=== PATIENT | male | born 1990 | race Caucasian/White ===

== ENCOUNTER 2018-11-04 17:01 | Observation (INO) | payer MEDICAID, SELFPAY ==
[2018-11-04 17:25] VITALS: BMI 29.8
--- NOTE | 2018-11-04 17:44 | PCM.HP.STD ---
Problem List (1) Opiate withdrawal Status: Acute (2) Heroin use Status: Chronic (3) History of intravenous drug abuse Status: Chronic (4) Tobacco use Status: Chronic (5) Obesity Status: Chronic Qualifiers: Obesity type: due to excess calories (6) Anxiety Status: Chronic History of Present Illness Date of Admission: 11/04/18 Chief Complaint: Acute Opiate Withdrawal The patient is a 28 y/o M w/ PMHx: Anxiety, Obesity, Tobacco use, Prior Hx Nephrolithiasis, History of Frequent Dental Infections, Prior Hx Heroin IV usage transitioning to Snorting (~2.5 prior) w/ usual usage 1 gm daily who presents to the [facility] at [facility] on 11/04/18 w/ noted opiate withdrawal onset starting 11/04/18 following last dose heroin 1/2 gm 11/03/18 7:30 pm with abdominal pain/cramping, generalized body aches and pains, rhinorrhea, fatigue, restless leg, sweating, yawning. Patient interested in attaining clean status. He has never been in an acute withdrawal program prior. He notes that he had been clean for nearing 2 years and joined a [employer] group and unfortunately several members were using heroin and he restarted. Past Medical History Past Medical History (Chronic Problems): Chronic Problems Heroin use (Chronic) History of intravenous drug abuse (Chronic) Tobacco use (Chronic) Obesity (Chronic) Anxiety (Chronic) Allergies Penicillins [PCN] Allergy (Unknown, Verified 11/04/18 17:35) Other Surgical History: - - Was them teeth extraction. Psychiatric History: Anxiety Lives: Alone Smoking Status: Current every day smoker - 1 pack/day cigarette tobacco usage. Tobacco Use: Cigarettes Alcohol: None Drugs: Heroin - Previously intravenously but for the past 2.5 years he is transition to snorting, 1 g/day usual usage. - *Family History Maternal History Items: - - Patient notes that his mother is healthy and denies any history of cancer, heart disease or diabetes. Paternal History Items: - - Patient notes he has a paternal family history of hypertension. Review of Systems Constitutional: Reports: Anorexia, Malaise, Weakness, Fatigue. Denies: Chills, Fever, Weight Change HEENT: Reports: Nasal Congestion, Sinus Congestion, Sinus Drainage. Denies: Head Aches Cardiovascular: Denies: Chest Pain, Palpitations Respiratory: Denies: Cough, Shortness of breath at rest, Sputum production Gastrointestinal: Reports: Abdominal Pain, Nausea. Denies: Vomiting Genitourinary: Denies: Dysuria Musculoskeletal: Reports: Joint Pain, Muscle pain. Denies: Joint Tenderness Skin: Denies: Rash, Wounds Neurological: Denies: Numbness, Tingling, Focal weakness Psychiatric: Reports: Anxiety. Denies: Depression, Homicidal Ideations, Suicidal Ideations Hematologic/ Lymphatic: Denies: Easy Bruising, Easy Bleeding VTE Information - Inpt Only VTE Present on Admission: No VTE Mechan Device Prophylaxis: None VTE Pharm Prophylaxis ordered?: No Reason prophylaxis not ordered:: Treatment Not Indicated Patient Problems: Active and Suspected Problems Opiate withdrawal (Acute) Subjective: Seated upright in the bed, fatigued appearing, at the same time anxious and restless, moving the bed frequently. Objective: Physical Examination: General: awake, alert, oriented x 3 and cooperative, seated upright in bed in no acute distress but does appear restless, moving the bed frequently. Skin: normal color, turgor, no icterus, cyanosis. HEENT: AT/NC, EOMI, PERRLA, moderately dry MM, no carotid bruits or JVD noted. Lungs: Diminished breath sounds at bases, occasional end expiratory wheeze, improved following coughing, no rales, ronchi. Heart: Regular rate and rhythm; no gallop, rub audible. Abdomen: soft, mild generalized discomfort with palpation, obese, ND, mildly hyperactive BS, no HSM. Extremities: no cyanosis, clubbing, or edema. Neurological: patient awake, alert, oriented x 3; cognitive function intact; pupils equally reactive to light and accomodation; cranial nerves II-XII grossly normal, moving all 4 extremities, no focal deficits, strength moderately globally decreased secondary to acute presentation. Psychiatric: affect appears mildly agitated, restless, no acute evidence of depressive or anxiety feelings. - Physical Exam Weight: 202 lb Body Mass Index (BMI) 29.8 Assessment/Plan All Active Problems Opiate withdrawal (Acute) The patient is a 28 y/o M w/ PMHx: Anxiety, Obesity, Tobacco use, Prior Hx Nephrolithiasis, History of Frequent Dental Infections, Prior Hx Heroin IV usage transitioning to Snorting (~2.5 prior) w/ usual usage 1 gm daily who presents to the [facility] at [facility] on 11/04/18 w/ noted opiate withdrawal onset. (1) Acute Opiate Withdrawal: Will admit to [facility], obtain routine labs including CBC, CMP, urine for drug screen and will initiate and continue on [facility] service protocol with tapering course of Subutex, as needed Seroquel, Librium, Sinemet, Catapres, Bentyl, Vistaril, IV fluids, IV antiemetics, Tylenol as needed for pain. Once patient clinically improved and completion of taper nearing will plan [facility] assistance for transition to next level of rehabilitation care. (2) IVDA Hx: Patient denies any history of hepatitis or HIV. He notes having been off IVDA usage x ~ 2.5 years. He is amenable to testing, pending HIV and hepatitis panel. Patient currently not candidate for hep C treatment currently as needs to be clean, sober x 6 months, documented attendance NA or AA meetings, counseling and ongoing negative drug screens. (3) Tobacco Abuse: Encouraged cessation, inpatient consultation per RT, NR if desired. (4) Anxiety: Not on regimen, discussed this may be component of usage, encouraged follow-up per [facility] set-up with counseling. (5) Obesity: Weight loss and lifestyle changes encouraged. (6) DVT prophylaxis: Low risk, ambulation. Code Visit Inpatient E&M: 53184 Init Hosp L3
[2018-11-04 17:55] VITALS: BP 122/74; PULSE 65; RESP 18; TEMP 37.2
[2018-11-04] MEDS: Methocarbamol 750 MG Tablet PO (18:04)
[2018-11-04] MEDS: Dicyclomine 10 MG Capsule 20 MG PO (18:04)
[2018-11-04] MEDS: chlordiazePOXIDE 25 MG Capsule PO (18:05)
[2018-11-04] MEDS: Buprenorphine HCl 2 MG TAB.SUBL SL (18:05)
[2018-11-04 18:12] LABS: ALB/GLOB Ratio 1.1 RATIO (0.9-2.4); AST(SGOT) 31 U/L (15-37); Alanine Aminotransfer ALT/SGPT 52 U/L (16-61); Albumin, Serum 3.6 g/dL (3.2-5.0); Alkaline Phosphatase 99 U/L (45-117); Anion Gap 4 (5-15); BUN 7 mg/dL (7-18); BUN/Creat Ratio 11.6 RATIO (10-20); Calcium,Total 8.4 mg/dL (8.5-10.1); Chloride 109 mmol/L (98-107); EST Glomerular Filtration Rate 171 mL/min (>60); Est Glom Filt Rate - Afr Amer 207 mL/min (>60); Estimated Creatinine Clearance 186.57 ml/min; Globulin 3.2 g/dL (2.2-4.2); Glucose 81 mg/dL (74-106); Protein, Total 6.8 g/dL (6.4-8.2); Sodium Level 141 mmol/L (136-145)
[2018-11-04 18:16] LABS: Bacteria 0 SEEN /hpf (None Seen); Mucous, Urine 0 SEEN /hpf (<or=2+); Red Blood Cells-Urine 0 SEEN /hpf (0-5)
[2018-11-04 18:16] LABS: Absolute Lymphocyte Count 2.19 X10^3/ul (0.83-4.51); Absolute Neutrophil Count 6.3 X10^3/uL (2.0-7.7); Basophil# 0.05 X10^3/uL; Basophil% 0.5 % (0-1); Eosinophils% 1.1 % (0-5); Hematocrit 45.5 % (40-54); Hemoglobin 16.3 g/dl (13.0-16.5); Lymphocyte # 2.19 X10^3/ul (4.0); Lymphocyte % 24.1 % (19-41); Mean Corp Hgb Conc 35.8 g/gl (32-36); Mean Corpuscular Hgb 31.5 pg (27.0-32.0); Mean Platelet Vol. 8.9 fl (6.2-12.0); Monocyte% 5.5 % (0-10); Neutrophil # 6.25 X10^3/uL (2.7-7.7); Neutrophil % 68.7 % (47-70); Platelet Count 277 K/mm3 (150-450); RBC Distribution Width CV 12.2 % (11.6-14.6); RBC Distribution Width SD 38.6 fl (35.1-43.9); Red Blood Count 5.17 M/mm3 (4.6-6.2); White Blood Count 9.1 K/mm3 (4.4-11.0)
--- NOTE | 2018-11-04 18:18 | HP.PCM_ITS ---
Problem List (1) Opiate withdrawal Status: Acute (2) Heroin use Status: Chronic (3) History of intravenous drug abuse Status: Chronic (4) Tobacco use Status: Chronic (5) Obesity Status: Chronic Qualifiers: Obesity type: due to excess calories (6) Anxiety Status: Chronic History of Present Illness Date of Admission: 11/04/18 Chief Complaint: Acute Opiate Withdrawal The patient is a 28 y/o M w/ PMHx: Anxiety, Obesity, Tobacco use, Prior Hx Nephrolithiasis, History of Frequent Dental Infections, Prior Hx Heroin IV usage transitioning to Snorting (~2.5 prior) w/ usual usage 1 gm daily who presents to the [facility] at [facility] on 11/04/18 w/ noted opiate withdrawal onset starting 11/04/18 following last dose heroin 1/2 gm 11/03/18 7:30 pm with abdominal pain/cramping, generalized body aches and pains, rhinorrhea, fatigue, restless leg, sweating, yawning. Patient interested in attaining clean status. He has never been in an acute withdrawal program prior. He notes that he had been clean for nearing 2 years and joined a [employer] group and unfortunately several members were using heroin and he restarted. Past Medical History Past Medical History (Chronic Problems): Chronic Problems Heroin use (Chronic) History of intravenous drug abuse (Chronic) Tobacco use (Chronic) Obesity (Chronic) Anxiety (Chronic) Allergies Penicillins [PCN] Allergy (Unknown, Verified 11/04/18 17:35) Other Surgical History: - - Was them teeth extraction. Psychiatric History: Anxiety Lives: Alone Smoking Status: Current every day smoker - 1 pack/day cigarette tobacco usage. Tobacco Use: Cigarettes Alcohol: None Drugs: Heroin - Previously intravenously but for the past 2.5 years he is transition to snorting, 1 g/day usual usage. - *Family History Maternal History Items: - - Patient notes that his mother is healthy and denies any history of cancer, heart disease or diabetes. Paternal History Items: - - Patient notes he has a paternal family history of hypertension. Review of Systems Constitutional: Reports: Anorexia, Malaise, Weakness, Fatigue. Denies: Chills, Fever, Weight Change HEENT: Reports: Nasal Congestion, Sinus Congestion, Sinus Drainage. Denies: Head Aches Cardiovascular: Denies: Chest Pain, Palpitations Respiratory: Denies: Cough, Shortness of breath at rest, Sputum production Gastrointestinal: Reports: Abdominal Pain, Nausea. Denies: Vomiting Genitourinary: Denies: Dysuria Musculoskeletal: Reports: Joint Pain, Muscle pain. Denies: Joint Tenderness Skin: Denies: Rash, Wounds Neurological: Denies: Numbness, Tingling, Focal weakness Psychiatric: Reports: Anxiety. Denies: Depression, Homicidal Ideations, Suicidal Ideations Hematologic/ Lymphatic: Denies: Easy Bruising, Easy Bleeding VTE Information - Inpt Only VTE Present on Admission: No VTE Mechan Device Prophylaxis: None VTE Pharm Prophylaxis ordered?: No Reason prophylaxis not ordered:: Treatment Not Indicated Patient Problems: Active and Suspected Problems Opiate withdrawal (Acute) Subjective: Seated upright in the bed, fatigued appearing, at the same time anxious and restless, moving the bed frequently. Objective: Physical Examination: General: awake, alert, oriented x 3 and cooperative, seated upright in bed in no acute distress but does appear restless, moving the bed frequently. Skin: normal color, turgor, no icterus, cyanosis. HEENT: AT/NC, EOMI, PERRLA, moderately dry MM, no carotid bruits or JVD noted. Lungs: Diminished breath sounds at bases, occasional end expiratory wheeze, improved following coughing, no rales, ronchi. Heart: Regular rate and rhythm; no gallop, rub audible. Abdomen: soft, mild generalized discomfort with palpation, obese, ND, mildly hyperactive BS, no HSM. Extremities: no cyanosis, clubbing, or edema. Neurological: patient awake, alert, oriented x 3; cognitive function intact; pupils equally reactive to light and accomodation; cranial nerves II-XII grossly normal, moving all 4 extremities, no focal deficits, strength moderately globally decreased secondary to acute presentation. Psychiatric: affect appears mildly agitated, restless, no acute evidence of depressive or anxiety feelings. - Physical Exam Weight: 202 lb Body Mass Index (BMI) 29.8 Assessment/Plan All Active Problems Opiate withdrawal (Acute) The patient is a 28 y/o M w/ PMHx: Anxiety, Obesity, Tobacco use, Prior Hx Nephrolithiasis, History of Frequent Dental Infections, Prior Hx Heroin IV usage transitioning to Snorting (~2.5 prior) w/ usual usage 1 gm daily who presents to the [facility] at [facility] on 11/04/18 w/ noted opiate withdrawal onset. (1) Acute Opiate Withdrawal: Will admit to MS, obtain routine labs including CBC, CMP, urine for drug screen and will initiate and continue on [facility] service protocol with tapering course of Subutex, as needed Seroquel, Librium, Sinemet, Catapres, Bentyl, Vistaril, IV fluids, IV antiemetics, Tylenol as needed for pain. Once patient clinically improved and completion of taper nearing will plan [facility] assistance for transition to next level of reha bilitation care. (2) IVDA Hx: Patient denies any history of hepatitis or HIV. He notes having been off IVDA usage x ~ 2.5 years. He is amenable to testing, pending HIV and hepatitis panel. Patient currently not candidate for hep C treatment currently as needs to be clean, sober x 6 months, documented attendance NA or AA meetings, counseling and ongoing negative drug screens. (3) Tobacco Abuse: Encouraged cessation, inpatient consultation per RT, NR if desired. (4) Anxiety: Not on regimen, discussed this may be component of usage, encouraged follow-up per [facility] set-up with counseling. (5) Obesity: Weight loss and lifestyle changes encouraged. (6) DVT prophylaxis: Low risk, ambulation. Code Visit Inpatient E&M: 88277 Init Hosp L3
[2018-11-04 18:20] LABS: POSITIVE COUNT NO; POSITIVE DIFFERENTIAL NO; POSITIVE MORPHOLOGY NO
[2018-11-04 18:28] LABS: Color, Urine Yellow (Yellow); Glucose, Dipstick Normal (Normal); Ketone-Dipstick Negative (Negative); Leukocyte Esterase-Dipstick 100 /ul (Negative); Nitrite-Dipstick Negative (Negative); Occult Blood-Urine Negative /ul (Negative); Protein-Dipstick Negative (Negative); Specific Gravity, Urine 1.015 (1.002-1.030); Urine Bilirubin Dipstick Negative (Negative); Urine Clarity Sl. Cloudy (Clear); Urine Urobilinogen 1 mg/dl (Normal)
[2018-11-04 18:36] LABS: Squamous Epithelial Cells - UA 0-5 SEEN /hpf (0-5); White Blood Cells 10-25 SEEN /hpf (0-5)
[2018-11-04 19:29] LABS: HIV - WCH Non-Reactive (Nonreactive)
[2018-11-04] MEDS: hydrOXYzine PAM 25 MG Capsule 50 MG PO (20:29)
[2018-11-04 21:47] VITALS: BP 140/85; PULSE 66; RESP 16; TEMP 36.7
[2018-11-04] MEDS: cloNIDine HCl 0.1 MG Tablet PO (21:53)
[2018-11-04] MEDS: Pramipexole Di-HCl 0.25 MG Tablet PO (21:53)
[2018-11-05] VITALS (7 sets, daily range): BP systolic 98–130; BP diastolic 52–78; PULSE 61–85; RESP 14–18; TEMP 36.4–37
[2018-11-05] MEDS: chlordiazePOXIDE 25 MG Capsule PO (02:10)
[2018-11-05] MEDS: Buprenorphine HCl 2 MG TAB.SUBL SL ×3 (02:10→17:47)
[2018-11-05] MEDS: Methocarbamol 750 MG Tablet PO ×3 (02:10→22:09)
--- NOTE | 2018-11-05 07:34 | PCM.PN.HOSP ---
Patient Problems: Active and Suspected Problems Opiate withdrawal (Acute) Subjective: Patient is a 28-year-old M with history of heroin dependence admitted with acute opioid withdrawal. 11/05/2018: Patient seen complains of low back pain restless legs as well as abdominal cramps. Objective: GENERAL: cooperative HEENT: Atraumatic; EYES; Anicteric, Normal Conjunctiva NECK; supple, normal thyroid, RESPIRATORY: Diminished to auscultation bilaterally, CARDIOVASCULAR: Regular S1 S2, GI: soft, non-tender, normoactive bowel sounds, : No Renal angle tenderness; EXTREMITIES: No edema, no clubbing, no cyanosis. MUSCULOSKELETAL: No Joint Tenderness; NEURO: Awake; no lateralizing signs. SKIN: No Rash PSYCH; Normal affect Vitals/I&O's: Vital Signs Temp Pulse Resp BP 97.6 F L 61 14 98/52 L 11/05/18 05:32 11/05/18 05:32 11/05/18 05:32 11/05/18 05:32 Oxygen Delivery Method Room Air Weight: 91.626 kg Body Mass Index (BMI) 29.8 Intake and Output for Last 24 Hours 11/03/18 11/04/18 11/05/18 23:59 23:59 23:59 Intake Total 200 / 200 1500 / 1500 Balance 200 / 200 1500 / 1500 Laboratory Results 11/04/18 17:30: Urine Color Yellow, Urine Clarity Sl. Cloudy, Urine pH 6.0, Ur Specific [place] 1.015, Urine Protein Negative, Urine Glucose (UA) Normal, Urine Ketones Negative, Urine Occult Blood Negative, Urine Nitrite Negative, Urine Bilirubin Negative, Urine Urobilinogen 1 H, Ur Leukocyte Esterase 100 H, Urine RBC 0 SEEN, Urine WBC 10-25 SEEN, Ur Squamous Epith Cells 0-5 SEEN, Urine Bacteria 0 SEEN, Urine Mucus 0 SEEN 11/04/18 17:45: WBC 9.1, RBC 5.17, Hgb 16.3, Hct 45.5, MCV 88.0, MCH 31.5, MCHC 35.8, RDW 12.2, RDW Differential 38.6, Plt Count 277, MPV 8.9, Immature Gran % (Auto) 0.100, Neut % (Auto) 68.7, Lymph % (Auto) 24.1, [place] % (Auto) 5.5, Eos % (Auto) 1.1, Baso % (Auto) 0.5, Absolute Neuts (auto) 6.3, Absolute Lymphs (auto) 2.19, Total Counted Not Reportable 11/04/18 17:45: Sodium 141, Potassium 4.0, Chloride 109 H, Carbon Dioxide 28.0, Anion Gap 4 L, BUN 7, Creatinine 0.60 L, Estim Creat Clear Calc 186.57, Est GFR (MDRD) Af Amer 207, Est GFR (MDRD) Non-Af 171, BUN/Creatinine Ratio 11.6, Glucose 81, Calcium 8.4 L, Total Bilirubin 1.10 H, AST 31, ALT 52, Alkaline Phosphatase 99, Total Protein 6.8, Albumin 3.6, Globulin 3.2, Albumin/Globulin Ratio 1.1 11/04/18 17:45: Ethyl Alcohol 10.0 11/04/18 17:45: Hepatitis A IgM Ab Pending, Hepatitis A Ab Total Pending, Hep Bs Antigen Pending, Hep B Core Total Ab Pending, Hep B Core IgM Ab Pending 11/04/18 17:45: HIV 1&2 Antibody Non-Reactive Current Medications Acetaminophen (Tylenol) 500 mg PO Q4H PRN PRN PRN Reason: Temp > 100.4 F Al Hydroxide/Mg Hydroxide (Mylanta Ii) 30 ml PO Q6H PRN PRN PRN Reason: dyspesia Bisacodyl (Dulcolax) 10 mg RECTAL DAILY PRN PRN Reason: Constipation Buprenorphine HCl (Buprenorphine Hcl) 4 mg SL Q8H SHREYA; Taper Stop: 11/07/18 21:59 Last Admin: 11/05/18 02:10 Dose: 4 mg Chlordiazepoxide (Librium) 25 mg PO Q6H PRN PRN PRN Reason: Moderate-Severe Anxiety Last Admin: 11/05/18 02:10 Dose: 25 mg Clonidine (Catapres) 0.1 mg PO Q2H PRN PRN PRN Reason: Hot/Cold Sweats or Anxiety Last Admin: 11/04/18 21:53 Dose: 0.1 mg Dicyclomine HCl (Bentyl) 20 mg PO Q6H PRN PRN PRN Reason: Abdomnial Discomfort Last Admin: 11/04/18 18:04 Dose: 20 mg Hydroxyzine HCl (Vistaril Vial) 50 mg IM Q6H PRN PRN PRN Reason: Breakthrough Anxiety Hydroxyzine Pamoate (Vistaril Pamoate Capsule) 50 mg PO Q6H PRN PRN PRN Reason: Mild Anxiety Last Admin: 11/04/18 20:29 Dose: 50 mg Ibuprofen (Motrin) 600 mg PO Q8H PRN PRN PRN Reason: Mild-Moderate Pain (1-5/10) Loperamide HCl (Imodium) 2 - 4 mg PO UD PRN PRN Reason: LOOSE STOOLS Methocarbamol (Methocarbamol) 750 mg PO Q6H PRN PRN PRN Reason: Muscle Aches Last Admin: 11/05/18 02:10 Dose: 750 mg Nicotine Polacrilex (Rugby Nicotine (Bkc)) 2 mg PO Q2H PRN PRN PRN Reason: nicotive craving Ondansetron HCl (Zofran Odt) 4 mg PO Q6H PRN PRN PRN Reason: NAUSEA Pramipexole Dihydrochloride (Mirapex) 0.25 mg PO Q12H PRN PRN PRN Reason: Restless Legs Last Admin: 11/04/18 21:53 Dose: 0.25 mg Quetiapine Fumarate (Seroquel) 25 mg PO Q6H PRN PRN PRN Reason: agitation, anxiety Senna (Senokot) 1 tablet PO QHS PRN PRN Reason: Constipation Trazodone HCl (Desyrel) 50 mg PO QHS SHREYA Last Admin: 11/05/18 00:36 Dose: Not Given Medical Necessity - Tobacco Use Smoking Status: Current every day smoker Tobacco Use: Cigarettes Assessment/Plan All Active Problems Opiate withdrawal (Acute) Patient is a 28-year-old lady with history of heroin dependence admitted with acute opioid withdrawal. 1. Acute opiate withdrawal patient is been admitted to the regular nursing floor for medical stabilization using the [facility] protocol with Subutex 2. Tobacco dependence counseled on cessation, offered nicotine patch for tobacco cravings 3. Nephrolithiasis currently symptomatic 4. Overweight with BMI of 29.8 5. DVT prophylaxis low risk did encourage early ambulation Code Visit Inpatient E&M: 25918 [facility] Hosp L3
[2018-11-05] MEDS: cloNIDine HCl 0.1 MG Tablet PO ×4 (09:21→22:09)
--- NOTE | 2018-11-05 09:25 | NEWVISION ---
Patient will go to [facility] upon discharge from [facility] for outpatient services. Patient states he will be transported by his father.
[2018-11-05] MEDS: Dicyclomine 10 MG Capsule 20 MG PO (14:07)
--- NOTE | 2018-11-05 15:57 | CHAPLAIN ---
Type of Pastoral Visit _x__ Initial Visit ___ Follow-up Visit ___ On-call Visit ___ General Patient Visit ___ Spiritual Assessment ___ Family Conference ___ Bereavement ___ Rapid Response ___ Code Blue ___ Other (describe below) Pastoral Care Referral From _x__ Patient ___ Family ___ Nurse ___ Physician ___ Artifacts Conservator ___ Landmen ___ Other (describe below) Sacrament/Intervention _x__ Active listening ___ Anointing ___ Uatsdin ___ Bereavement ___ Communion _x__ Cristina exploration ___ _x__ Life review _x__ Prayer ___ Reconciliation ___ Sacrament of Sick _x__ Supportive presence ___ Wedding ___ Other (describe below) Pastoral Comments patient has a strong spiritual background and is looking to that for his greatest support; pt also involved in outreach ministry to addicts in [place]; pt reports being recovered for over 2 years until this relapse of past month or so;
[2018-11-05] MEDS: hydrOXYzine PAM 25 MG Capsule 50 MG PO (22:09)
[2018-11-05] MEDS: Pramipexole Di-HCl 0.25 MG Tablet PO (22:09)
[2018-11-06 01:49] VITALS: BP 110/62; PULSE 68; RESP 14; TEMP 36.8
[2018-11-06] MEDS: Buprenorphine HCl 2 MG TAB.SUBL SL ×3 (01:51→22:30)
--- NOTE | 2018-11-06 08:04 | PCM.PN.HOSP ---
Patient Problems: Active and Suspected Problems Opiate withdrawal (Acute) Subjective: Patient seen had a relatively uneventful night denies any low back pain compared to the day prior Objective: GENERAL: cooperative HEENT: Atraumatic; EYES; Anicteric, Normal Conjunctiva NECK; supple, normal thyroid, RESPIRATORY: Diminished to auscultation bilaterally, CARDIOVASCULAR: Regular S1 S2, GI: soft, non-tender, normoactive bowel sounds, : No Renal angle tenderness; EXTREMITIES: No edema, no clubbing, no cyanosis. MUSCULOSKELETAL: No Joint Tenderness; NEURO: Awake; no lateralizing signs. SKIN: No Rash PSYCH; Normal affect Vitals/I&O's: Vital Signs Temp Pulse Resp BP 98.3 F 68 14 110/62 11/06/18 01:49 11/06/18 01:49 11/06/18 01:49 11/06/18 01:49 Oxygen Delivery Method Room Air Weight: 91.626 kg Body Mass Index (BMI) 29.8 Intake and Output for Last 24 Hours 11/04/18 11/05/18 11/06/18 23:59 23:59 23:59 Intake Total 200 / 200 1500 / 1500 2100 / 2100 Balance 200 / 200 1500 / 1500 2100 / 2100 Current Medications Acetaminophen (Tylenol) 500 mg PO Q4H PRN PRN PRN Reason: Temp > 100.4 F Al Hydroxide/Mg Hydroxide (Mylanta Ii) 30 ml PO Q6H PRN PRN PRN Reason: dyspesia Bisacodyl (Dulcolax) 10 mg RECTAL DAILY PRN PRN Reason: Constipation Buprenorphine HCl (Buprenorphine Hcl) 2 mg SL Q8H SHREYA; Taper Stop: 11/07/18 21:59 Last Admin: 11/06/18 01:51 Dose: 2 mg Chlordiazepoxide (Librium) 25 mg PO Q6H PRN PRN PRN Reason: Moderate-Severe Anxiety Last Admin: 11/05/18 02:10 Dose: 25 mg Clonidine (Catapres) 0.1 mg PO Q2H PRN PRN PRN Reason: Hot/Cold Sweats or Anxiety Last Admin: 11/05/18 22:09 Dose: 0.1 mg Dicyclomine HCl (Bentyl) 20 mg PO Q6H PRN PRN PRN Reason: Abdomnial Discomfort Last Admin: 11/05/18 14:07 Dose: 20 mg Hydroxyzine HCl (Vistaril Vial) 50 mg IM Q6H PRN PRN PRN Reason: Breakthrough Anxiety Hydroxyzine Pamoate (Vistaril Pamoate Capsule) 50 mg PO Q6H PRN PRN PRN Reason: Mild Anxiety Last Admin: 11/05/18 22:09 Dose: 50 mg Ibuprofen (Motrin) 600 mg PO Q8H PRN PRN PRN Reason: Mild-Moderate Pain (1-5/10) Loperamide HCl (Imodium) 2 - 4 mg PO UD PRN PRN Reason: LOOSE STOOLS Methocarbamol (Methocarbamol) 750 mg PO Q6H PRN PRN PRN Reason: Muscle Aches Last Admin: 11/05/18 22:09 Dose: 750 mg Nicotine Polacrilex (Rugby Nicotine (Bkc)) 2 mg PO Q2H PRN PRN PRN Reason: nicotive craving Ondansetron HCl (Zofran Odt) 4 mg PO Q6H PRN PRN PRN Reason: NAUSEA Pramipexole Dihydrochloride (Mirapex) 0.25 mg PO Q12H PRN PRN PRN Reason: Restless Legs Last Admin: 11/05/18 22:09 Dose: 0.25 mg Quetiapine Fumarate (Seroquel) 25 mg PO Q6H PRN PRN PRN Reason: agitation, anxiety Senna (Senokot) 1 tablet PO QHS PRN PRN Reason: Constipation Trazodone HCl (Desyrel) 50 mg PO QHS SHREYA Last Admin: 11/06/18 00:25 Dose: Not Given Medical Necessity - Tobacco Use Smoking Status: Current every day smoker Tobacco Use: Cigarettes Assessment/Plan All Active Problems Opiate withdrawal (Acute) Patient is a 28-year-old lady with history of heroin dependence admitted with acute opioid withdrawal. 1. Acute opiate withdrawal patient is been admitted to the regular nursing floor for medical stabilization using the [facility] protocol with Subutex plan is for patient to be discharged on 11/07/2018 if his condition continues to improve 2. Tobacco dependence counseled on cessation, offered nicotine patch for tobacco cravings 3. Nephrolithiasis currently symptomatic 4. Overweight with BMI of 29.8 5. DVT prophylaxis low risk did encourage early ambulation Code Visit Inpatient E&M: 62227 Subs Hosp L2
[2018-11-06 08:12] VITALS: BP 119/63; PULSE 79; RESP 18; TEMP 36.6
[2018-11-06] MEDS: Ibuprofen 600 MG Tablet PO (08:14)
[2018-11-06] MEDS: chlordiazePOXIDE 25 MG Capsule PO ×2 (08:15→20:16)
[2018-11-06] MEDS: Methocarbamol 750 MG Tablet PO ×2 (08:15→14:32)
[2018-11-06 12:06] LABS: HEPATITIS B SURFACE AG Negative (Negative); Hepatitis A AB, Total Negative (Negative); Hepatitis A IgM Antibody Negative (Negative); Hepatitis B Core AB IgM Negative (Negative); Hepatitis B Core Ab Total Negative (Negative)
[2018-11-06] MEDS: Pramipexole Di-HCl 0.25 MG Tablet PO (12:08)
[2018-11-06 14:26] VITALS: BP 122/85; PULSE 62; RESP 18; TEMP 36.3
[2018-11-06] MEDS: QUEtiapine 25 MG Tablet PO (14:32)
--- NOTE | 2018-11-06 14:38 | NURSING ---
med cup set on table, pt states i'm going to go get some butter. reminded pt he needs to take his medications. pt replies oh, i was going to take them when i am half way done eating. informed pt nurse cannot leave room until meds are taken. pt states oh, okay i will take them. boy that orange one is big. nurse observed pt take large orange pill out of med cup with his right hand. pt keeps right hand in fist. pt then messes with his sandwich and says it is really weird to have to wear this hospital gown in the hallway. noticed pt keeps right hand in fist the whole time including while he is placing on a gown to go out into hallway. nurse asks pt do you have a pill in your hand, i noticed you have kept your right hand in a fist since i gave you your meds. pt states oh, i was going to take it with me opens up his right hand and shows said nurse little circular orange pill that was in med cup with large orange prn med. Said nurse informed pt he needs to take the pill as he requested for his symptoms. pt cooperative, opens up his mouth, places pill on his tongue and sticks his tongue out then takes a large sip from his water pitcher.
[2018-11-06] MEDS: Nicotine Polacrilex 2 MG GUM PO (19:59)
[2018-11-06 20:03] VITALS: BP 138/81; PULSE 97; RESP 18; TEMP 36.7; O2SAT 100
[2018-11-06] MEDS: cloNIDine HCl 0.1 MG Tablet PO (20:16)
[2018-11-06 20:24] VITALS: BP 138/81; PULSE 97; RESP 18; TEMP 36.6
[2018-11-06] MEDS: hydrOXYzine 50 MG/ML Vial IM (22:32)
[2018-11-07 00:24] VITALS: BP 127/61; PULSE 80; RESP 18; TEMP 35.8; O2SAT 99
[2018-11-07] MEDS: cloNIDine HCl 0.1 MG Tablet PO (00:26)
[2018-11-07] MEDS: Pramipexole Di-HCl 0.25 MG Tablet PO (00:26)
--- NOTE | 2018-11-07 07:20 | DCINST_ITS ---
- Discharge Diagnoses Current Active Problems: Current Active and Chronic Problems Opiate withdrawal (Acute) Heroin use (Chronic) History of intravenous drug abuse (Chronic) Tobacco use (Chronic) Obesity (Chronic) Anxiety (Chronic) You will use the following diet at home:: No restrictions Allergies/Adverse Reactions: Allergies Penicillins [PCN] Allergy (Unknown, Verified 11/04/18 17:35) Other Primary Care Physician: Care Physician,No Primary [Primary Care Provider] - Test Results: Test results from this visit will be discussed in further detail at your follow- up appointment, if applicable. Proposed Discharge Date: 11/07/18
--- NOTE | 2018-11-07 07:20 | PCM.DC.SUM ---
Discharge Date and Diagnosis - Problem List Patient Problems: Active and Suspected Problems Opiate withdrawal (Acute) Date of Admission: 11/04/18 Date of Discharge: 11/07/18 - Primary Discharge Diagnosis Active and Suspected Problems Opiate withdrawal (Acute) - Secondary Discharge Diagnosis Chronic Problems Heroin use (Chronic) History of intravenous drug abuse (Chronic) Tobacco use (Chronic) Obesity (Chronic) Anxiety (Chronic) Hospital Course and Treatment Summary of Care Provided: Patient is a 28-year-old lady with history of heroin dependence admitted with acute opioid withdrawal. 1. Acute opiate withdrawal patient is been admitted to the regular nursing floor for medical stabilization using the [facility] protocol with Subutex she was discharged on 11/07/2018 following stabilization of his medical condition 2. Tobacco dependence counseled on cessation, offered nicotine patch for tobacco cravings 3. Nephrolithiasis currently symptomatic 4. Overweight with BMI of 29.8 5. Anxiety disorder; prescription was written for hydroxyzine patient instructed to allow up with PCP for subsequent management 6. DVT prophylaxis low risk did encourage early ambulation Patient Problems: Active and Suspected Problems Opiate withdrawal (Acute) Objective: GENERAL: cooperative HEENT: Atraumatic; EYES; Anicteric, Normal Conjunctiva NECK; supple, normal thyroid, RESPIRATORY: Diminished to auscultation bilaterally, CARDIOVASCULAR: Regular S1 S2, GI: soft, non-tender, normoactive bowel sounds, : No Renal angle tenderness; EXTREMITIES: No edema, no clubbing, no cyanosis. MUSCULOSKELETAL: No Joint Tenderness; NEURO: Awake; no lateralizing signs. SKIN: No Rash PSYCH; Normal affect - Physical Exam Vital Signs Temp Pulse Resp BP Pulse Ox 96.4 F L 80 18 127/61 H 99 11/07/18 00:24 11/07/18 00:24 11/07/18 00:24 11/07/18 00:24 11/07/18 00:24 Oxygen Delivery Method Room Air Weight: 91.6 kg Body Mass Index (BMI) 29.8 Intake and Output for Last 24 Hours 11/05/18 11/06/18 11/07/18 23:59 23:59 23:59 Intake Total 1500 / 1500 2099 / 2099 Balance 1500 / 1500 2099 / 2099 Discharge Diet: No Restrictions Discharge Activity: Return to Normal Activity, May not drive while taking narcotic pain medications. Home Medications: Medications to take at Discharge hydrOXYzine pamoate capsule [Vistaril pamoate capsule] 50 mg PO Q6H PRN PRN #20 capsule 11/07/18 Following Prescrptions Were Given to Patient: hydrOXYzine pamoate capsule [Vistaril pamoate capsule] 50 mg PO Q6H PRN PRN #20 capsule PRN Reason: Mild Anxiety Primary Care Physician: Care Physician,No Primary [Primary Care Provider] - Please follow up with your Primary Care Physician in: in 2-4 weeks Disposition: Home Minutes spent on discharge:: 35 Patient Condition:: Stable Medical Necessity - Tobacco Use Smoking Status: Current every day smoker Tobacco Use: Cigarettes Meaningful Use Info Meaningful Use Diagnoses (Choose all that apply): None applicable Code Visit Inpatient E&M: 80294 Disch Hosp
[2018-11-07 08:31] VITALS: BP 125/42; PULSE 79; RESP 18; TEMP 36.3; O2SAT 100
[2018-11-07] MEDS: Buprenorphine HCl 2 MG TAB.SUBL SL (09:23)
[2018-11-07] MEDS: hydrOXYzine PAM 25 MG Capsule 50 MG PO (09:23)
[2018-11-07 17:18] LABS: Hep B Surface Antibodies Non Reactive (.)
[2018-11-07 17:19] LABS: Hepatitis C Ab >11.0 s/co ratio (0.0-0.9)
--- NOTE | 2018-11-07 18:23 | NURSING ---
This RN called [facility] in [place] after speaking with Dr. Parikh- verified that tablets of vistaril are ok. (tablets are on national shortage) Understanding verbalized by Blair with [facility].
== END 2018-11-07 12:15 | disposition home or self-care (01) | DRG 773 ==
PROVIDERS: Admitting Provider Family Medicine; Referring Provider Family Medicine; Visit Provider Internal Medicine
DX: F11.23 Opioid dependence with withdrawal (principal); F17.210 Nicotine dependence, cigarettes, uncomplicated; Z68.29 Body mass index [BMI] 29.0-29.9, adult; N20.0 Calculus of kidney; F41.9 Anxiety disorder, unspecified; E66.9 Obesity, unspecified
CPT/HCPCS: 80053; 80320; 81001; 85025; 86703; 86704; 86705; 86706; 86708; 86709; 86803; 87340; 99218; G0378; G0379; G0480